=== PATIENT | male | born 1975 | race Two or more races ===

== ENCOUNTER 2023-10-25 09:42 | Emergency (ER) | payer BC, OTHER ==
[~2023-10-25] VITALS: Ht 177.8 cm; Wt 79.6 kg
[2023-10-25 11:05] VITALS: BP 140/110; PULSE 91; RESP 19; TEMP 98.3; O2SAT 98
[2023-10-25] MEDS ORDERED: LIDOCAINE 1% HCL (LOCAL ANESTH.) INJ 20ML MDV IJ ONE (11:15)
[2023-10-25] MEDS ORDERED: IBUP-1456 PO (11:30)
== END 2023-10-25 11:53 | disposition home or self-care (01) ==
LOC: ER 09:42
DX: S61.412A Laceration without foreign body of left hand, initial encounter (principal); W26.9XXA Contact with unspecified sharp object(s), initial encounter; Y93.89 Activity, other specified; Y92.89 Other specified places as the place of occurrence of the external cause; Y99.8 Other external cause status
CPT/HCPCS: 12002; 99282; J2001